=== PATIENT | male | born 1955 | race Caucasian/White ===

== ENCOUNTER 2022-07-25 12:33 | Emergency (ER) | payer OTHER ==
[2022-07-25 12:41] VITALS: BP 160/87; PULSE 70; RESP 18; TEMP 97.9; BMI 27.4
[2022-07-25] MEDS ORDERED: ACETAMINOPHEN 325 MG TABLET (FP) PO ONE (13:59)
[2022-07-25] MEDS ORDERED: ACETAMINOPHEN 325 MG TABLET (FP) ONE (14:01)
== END 2022-07-25 15:07 | disposition home or self-care (01) ==
LOC: JERFT 12:33
DX: M25.562 Pain in left knee (principal); M25.462 Effusion, left knee
CPT/HCPCS: 73562-TC-LT-FY; 93005; 93010; 99283-25